=== PATIENT | female | born 1935 | race African-American/Black ===

== ENCOUNTER → 2018-04-13 | Outpatient (CLI) | payer MEDICARE, OTHER ==
[2014-04-02 02:26] VITALS: BP 166/84
--- NOTE | 2018-04-13 11:01 | KCIC ---
EXAM: Bilateral diagnostic mammogram; bilateral breast sonogram. HISTORY: 82-year-old female presents with bilateral bloody nipple discharge. TECHNIQUE: Full-field digital craniocaudal and mediolateral oblique views of both breasts are obtained for evaluation. Computer aided detection with [employer] software version 9.3 was applied. Sonographic imaging of both breasts including all 4 quadrants and the retroareolar regions was performed. COMPARISON: None. This is a new baseline mammogram. BREAST PARENCHYMAL DENSITY: Level D - Extremely dense. FINDINGS: There is extremely dense breast parenchyma. There are metallic clips related to prior biopsies within both breasts. There are multiple scattered calcifications throughout both breasts. The diffuse nature of these calcifications favors benignity. There are superimposed vascular calcifications. There is no architectural distortion. There is a circumscribed nodule within the upper outer quadrant of the left breast. Sonographic imaging of the left breast demonstrates a circumscribed hypoechoic lesion containing calcifications at the 1:00 location, likely corresponding with the aforementioned mammographic nodularity within the upper outer quadrant. This measures 1.1 cm in maximum dimension. There are small lymph nodes within the bilateral axillary regions. These maintain benign-appearing fatty frederic. There is extremely dense breast parenchyma with suspected superimposed areas of fibrocystic change. No suspicious intraductal lesion is seen sonographically. IMPRESSION: 1. 1.1 cm nodule within the upper outer quadrant of the left breast. The sonographic appearance favors a fibroadenoma. However, given the absence of prior studies for comparison and new onset bloody nipple discharge, sonographic guided biopsy is recommended for definitive diagnosis. 2. Extremely dense breast parenchyma containing multiple punctate calcifications, the diffuse nature of which favors benignity. Short-term follow-up with a bilateral diagnostic mammogram in 6 months is recommended to confirm stability. 3. Note is made that bilateral galactography should be considered to exclude an intraductal lesion if there is persistent bloody nipple discharge which is manually expressible. 4. BI-RADS Category 4: Suspicious abnormality. Sonographic guided biopsy of the left breast is recommended, as described above. These findings were discussed with the patient and the patient boarding mother at the time of the exam. This information will be communicated to the referring physician office. If your mammogram demonstrates that you have dense breast tissue, which could hide abnormalities, and if you have other risk factors for breast cancer that have been identified, you might benefit from supplemental screening tests that may be suggested by your ordering physician. Dense breast tissue, in and of itself, is a relatively common condition. This information is not provided to cause undue concern, but rather to raise your awareness and to promote discussion with your physician regarding the presence of other risk factors, in addition to dense breast tissue. A report of your mammography results will be sent to you and your physician. You should contact your physician if you have any questions or concerns regarding this report. Mammography is a sensitive method for finding small breast cancers, but it does not detect them all and is not a substitute for careful clinical examination. A negative mammogram does not negate a clinically suspicious finding and should not result in delay in biopsying a clinically suspicious abnormality. PQRS compliance statement - Patient information was entered into a reminder system with a target due date for the next mammogram. "Our facility is accredited by the [employer] Mammography [employer]." Electronically signed by: Marcia Townsend MD (04/13/2018 10:58 AM) [id number]
== END | disposition home or self-care (01) ==
LOC: KCIC MAMMO 09:40
PROVIDERS: ATTEND Family Medicine Geriatric Medicine
DX: D24.2 Benign neoplasm of left breast (principal); N63.21 Unspecified lump in the left breast, upper outer quadrant
CPT/HCPCS: 76641; 77066